=== PATIENT | male | born 1975 | race Caucasian/White ===

== ENCOUNTER 2018-10-25 17:32 | Emergency (ER) | payer OTHER ==
[2018-10-25 17:53] LABS: ADD MAN DIFF? NO
[2018-10-25 17:54] LABS: WHITE BLOOD COUNT 8.7 10^3/ul (4.8-10.8)
[2018-10-25 17:54] LABS: BASOPHIL # 0.1 10^3/ul (0.0-0.1); BASOPHILS % 0.7 % (0.0-2.0); EOSINOPHILS # 0.1 10^3/ul (0.0-0.5); EOSINOPHILS % 0.9 % (0.0-7.0); HEMATOCRIT 47.1 % (42.0-52.0); LYMPHOCYTES # 2.2 10^3/ul (0.8-2.9); LYMPHOCYTES % 25.9 % (15.0-51.0); MEAN CORPUSCULAR HGB CONC 31.8 g/dl (32.0-37.0); MEAN CORPUSCULAR VOLUME 72.4 fl (82.0-101.0); MEAN PLATELET VOLUME 9.9 fl (7.4-10.4); MONOCYTE # 0.5 10^3/ul (0.3-0.9); MONOCYTES % 5.7 % (0.0-11.0); NEUTROPHIL # 5.8 10^3/ul (1.6-7.5); NEUTROPHILS % 66.6 % (39.0-77.0); PLATELET COUNT 266 10^3/UL (140-415); RED BLOOD COUNT 6.51 10^6/ul (4.70-6.10)
[2018-10-25] MEDS: SOD CHLORIDE 0.9% 1,000 ML IV (17:54)
[2018-10-25] MEDS: LORAZEPAM 2 MG INJ IV (17:54)
[2018-10-25 18:19] LABS: ANION GAP 13 (5-13); BLOOD UREA NITROGEN 18 mg/dl (7-20); CALCIUM 9.8 mg/dl (8.4-10.2); CARBON DIOXIDE 29 mmol/L (21-31); CHLORIDE 100 mmol/L (97-110); Estimated GFR > 60 mL/min (>60); GLUCOSE 143 mg/dl (70-220); MAGNESIUM 2.3 mg/dl (1.7-2.5); POTASSIUM 3.5 mmol/L (3.5-5.1); SODIUM 142 mmol/L (135-144)
[2018-10-25 18:26] LABS: D-DIMER 950.84 ng/ml (<460)
[2018-10-25 18:32] LABS: TROPONIN-I < 0.012 ng/ml (0.000-0.120)
[2018-10-25 18:35] LABS: FREE T4 (FREE THYROXINE) 0.81 ng/dl (0.64-1.79)
[2018-10-25] MEDS: SOD CHLORIDE 0.9% 100 ML (20:57)
[2018-10-25] MEDS: IOHEXOL 100 ML (20:57)
== END 2018-10-25 22:06 | disposition home or self-care (01) ==
LOC: E/R 17:32
DX: R07.9 Chest pain, unspecified (principal)
CPT/HCPCS: 36415; 71045; 71275; 80048; 83735; 84439; 84443; 84484; 85025; 85378; 93005; 96374; 99285-25

== ENCOUNTER 2018-11-01 05:28 | Emergency (ER) | payer BC, OTHER ==
[2018-11-01 06:45] LABS: ADD MAN DIFF? NO
[2018-11-01] MEDS: ONDANSETRON 4 MG INJ IV (06:46)
[2018-11-01] MEDS: morphine 4 MG/ML VIAL IV (06:46)
[2018-11-01 06:52] LABS: BASOPHIL # 0.1 10^3/ul (0.0-0.1); BASOPHILS % 0.8 % (0.0-2.0); EOSINOPHILS # 0.1 10^3/ul (0.0-0.5); EOSINOPHILS % 1.5 % (0.0-7.0); HEMATOCRIT 44.6 % (42.0-52.0); HEMOGLOBIN 14.6 g/dl (14.0-18.0); LYMPHOCYTES # 2.1 10^3/ul (0.8-2.9); MEAN CORPUSCULAR HEMOGLOBIN 23.7 pg (29.0-33.0); MEAN CORPUSCULAR HGB CONC 32.7 g/dl (32.0-37.0); MEAN CORPUSCULAR VOLUME 72.3 fl (82.0-101.0); MONOCYTE # 0.5 10^3/ul (0.3-0.9); MONOCYTES % 6.3 % (0.0-11.0); NEUTROPHIL # 5.2 10^3/ul (1.6-7.5); NEUTROPHILS % 65.1 % (39.0-77.0); PLATELET COUNT 242 10^3/UL (140-415); RED BLOOD COUNT 6.17 10^6/ul (4.70-6.10)
[2018-11-01 07:08] LABS: ALANINE AMINOTRANSFERASE 47 IU/L (13-69); ALBUMIN 4.6 g/dl (3.3-4.9); ALBUMIN/GLOBULIN RATIO 1.31; ALKALINE PHOSPHATASE 104 IU/L (42-121); ANION GAP 9 (5-13); ASPARTATE AMINO TRANSFERASE 33 IU/L (15-46); BILIRUBIN,INDIRECT 0.3 mg/dl (0-1.1); BILIRUBIN,TOTAL 0.3 mg/dl (0.2-1.3); BLOOD UREA NITROGEN 12 mg/dl (7-20); CALCIUM 9.7 mg/dl (8.4-10.2); CARBON DIOXIDE 29 mmol/L (21-31); CHLORIDE 103 mmol/L (97-110); CREATININE 0.85 mg/dl (0.61-1.24); Estimated GFR > 60 mL/min (>60); GLUCOSE 106 mg/dl (70-220); POTASSIUM 4.1 mmol/L (3.5-5.1); SODIUM 141 mmol/L (135-144); TOTAL PROTEIN 8.1 g/dl (6.1-8.1)
[2018-11-01 07:20] LABS: TROPONIN-I < 0.012 ng/ml (0.000-0.120)
[2018-11-01] MEDS: KETOROLAC 30 MG INJ IV (07:35)
== END 2018-11-01 08:20 | disposition home or self-care (01) ==
LOC: E/R 05:28
DX: M94.0 Chondrocostal junction syndrome [Tietze] (principal); R00.2 Palpitations
CPT/HCPCS: 36415; 71045; 80053; 84484; 85025; 93005; 96374; 96375; 99285-25

== ENCOUNTER 2018-11-15 19:58 | Emergency (ER) | payer BC ==
[2018-11-15] MEDS: LORAZEPAM 1 MG TAB PO (21:28)
== END 2018-11-15 22:46 | disposition home or self-care (01) ==
LOC: FTE 19:58
DX: R00.2 Palpitations (principal)
CPT/HCPCS: 99283